=== PATIENT | male | born 1990 ===

== ENCOUNTER 2021-01-15 06:38 | Emergency (ER) | payer BC, SELFPAY ==
[2021-01-15 07:51] LABS: #Eosinphils 0.2 10x3/uL (0.0-0.5); #Monocytes 0.5 10x3/uL (0.0-1.1); #Neutrophils 1.8 10x3/uL (1.5-8.4); %Basophils 0.9 % (0.0-2.0); %Eosinophils 4.8 % (0.0-6.0); %Lymphocytes 40.6 % (18.0-47.0); %Monocytes 11.1 % (0.0-10.0); %Neutrophils 42.4 % (40.0-75.0); Hemoglobin 13.7 g/dL (13.5-17.5); Mean Corpuscular HGB CONC 33.5 g/dL (32.0-36.0); Mean Corpuscular Hemoglobin 29.1 pg (27.0-33.0); Mean Corpuscular Volume 86.8 fl (81.2-95.1); Mean Platelet Volume 8.8 fl (7.4-10.4); Platelet Count 198 10x3/uL (150-450); RBC Distribution Width 12.9 % (11.5-14.5); Red Blood Cell (RBC) Count 4.71 10x6/uL (4.32-5.72); White Blood Cell (WBC) Count 4.3 10x3/uL (3.5-10.5)
[2021-01-15 08:04] LABS: PTT 25.7 sec (22.0-33.0); Prothrombin Time 11.2 sec (9.5-12.1)
[2021-01-15 08:06] LABS: ALT (SGPT) 25 U/L (8-55); AST (SGOT) 40 U/L (5-34); Albumin 4.2 g/dL (3.5-5.0); Alkaline Phosphatase 53 U/L (40-110); Anion Gap 13 mmol/L (10-20); BUN (Urea Nitrogen) 11 mg/dL (8.9-20.6); Bilirubin, Total 0.7 mg/dL (0.2-1.2); Calc. Creatinine Clearance 0 mL/min (70-130); Calcium 9.4 mg/dL (7.8-10.44); Carbon Dioxide 23 mmol/L (22-29); Chloride 109 mmol/L (98-107); Globulin 2.7 g/dL (2.4-3.5); Glucose 93 mg/dL (70-105); Potassium 3.8 mmol/L (3.5-5.1); Protein, Total 6.9 g/dL (6.0-8.3); Sodium 141 mmol/L (136-145)
[2021-01-15] MEDS ORDERED: Ketorolac Tromethamine 30 MG/ML VIAL ONE (09:02)
[2021-01-15] MEDS ORDERED: Metoclopramide HCl 10 MG/2 ML VIAL ONE (09:03)
== END 2021-01-15 10:50 | disposition home or self-care (01) ==
LOC: CSHERS 06:38
DX: G43.809 Other migraine, not intractable, without status migrainosus (principal); H60.92 Unspecified otitis externa, left ear; R29.700 NIHSS score 0
CPT/HCPCS: 70450; 71045; 80053; 84484; 85025; 85610; 85730; 93005; 94760; 96365; 96366; 96375; J1885; J2765